=== PATIENT | female | born 1995 | race Caucasian/White ===

== ENCOUNTER 2017-06-03 11:14 | Emergency (ER) | payer BC ==
--- NOTE | 2017-06-03 11:46 | EDPHY ---
H & P Stated Complaint: sore throat Time Seen by Provider: 06/03/17 11:45 HPI/ROS: HPI: This is a 21-year-old female who presents with Chief Complaint: Sore throat Location: Throat Quality: Sore Duration: 1 week Signs and Symptoms: No fever, no cough, no swollen glands, no neck stiffness, no headache, + voice hoarseness, + pain with swallowing, no drooling Timing: Daily, not improved Severity: Moderate Context: Patient presents with one-week history of sore throat accompanied by "I lost my voice." She denies any fever, chills, swollen glands, neck stiffness. She reports that she is drinking fluids but certain foods hurt to swallow. She has not tried any [id number] medications for her symptoms. Denies any cough/upper respiratory symptoms. Modifying Factors: None Comment: ROS: see HPI Constitutional: No fever, no chills, no weight loss Eyes: No blurred vision Respiratory: No shortness of breath, no cough Cardiovascular: No chest pain Gastrointestinal: No nausea, no vomiting, no diarrhea Genitourinary: No dysuria Extremities: No myalgias Neurologic: No weakness, no numbness Skin: No rashes Hematologic: No bruising, no bleeding MEDICAL/SURGICAL/SOCIAL HISTORY: Medical history: Asthma Surgical history: Denies Social history: Student. Nonsmoker. Family history noncontributory. CONSTITUTIONAL: Well-developed well-appearing young adult white female, awake and alert, no obvious distress HEENT: Atraumatic and normocephalic, PERRL, EOMI. Tympanic membranes clear. Oropharynx clear, no tonsillar hypertrophy, mild post pharyngeal erythema, no postpharyngeal edema, uvula midline, no exudate and moist pink mucosa. Airway patent. No lymphadenopathy. No meningismus. Cardiovascular: Normal S1/S2, regular rate, regular rhythm, without murmur rub or gallop. PULMONARY/CHEST: Symmetrical and nontender. Clear to auscultation bilaterally. Good air movement. No accessory muscle usage. ABDOMEN: Soft, nondistended, nontender, no rebound, no guarding, no peritoneal signs, no masses or organomegaly. No CVAT. EXTREMITIES: 2/2 pulses, strength 5/5, no deformities, no clubbing, no cyanosis or edema. NEUROLOGICAL: no focal neuro deficits. GCS 15. SKIN: Warm and dry, no erythema. no rash. Good capillary refill. Source: Patient Exam Limitations: No limitations - Medical/Surgical History Hx Asthma: Yes Hx Chronic Respiratory Disease: No Hx Diabetes: No Hx Cardiac Disease: No Hx Renal Disease: No Hx Cirrhosis: No Hx Alcoholism: No Hx HIV/AIDS: No Hx Splenectomy or Spleen Trauma: No Other PMH: asthma - Social History Smoking Status: Never smoked Constitutional: Initial Vital Signs Temperature (C) 37.0 C 06/03/17 11:22 Heart Rate 95 06/03/17 11:22 Respiratory Rate 16 06/03/17 11:22 Blood Pressure 104/73 06/03/17 11:22 O2 Sat (%) 98 06/03/17 11:22 O2 Delivery Mode Room Air Allergies/Adverse Reactions: No Known Allergies Allergy (Unverified 04/27/14 16:53) Home Medications: Medication Instructions Recorded Albuterol Sulfate 06/03/17 predniSONE [predniSONE TAPER] 10 mg PO DAILY 6 Days ea 06/03/17 Medical Decision Making ED Course/Re-evaluation: Strep test negative Modified Centor criteria low; prophylactic antibiotics not indicated No signs of tonsillar abscess/meningitis/Diego's angina/airway compromise/ dehydration Vital signs reviewed upon arrival and stable. Given 15 mL p. O. Viscous lidocaine, p.o. Decadron 8 mg, ibuprofen 800 mg Passed p. O. Trial prior to discharge without difficulty. Advised continue supportive care This patient was seen under the supervision of my secondary supervising physician. I evaluated care for this patient independently. Differential Diagnosis: Differential diagnosis includes but is not limited to upper respiratory infection, laryngitis, strep pharyngitis. - Data Points Laboratory Results: 06/03/17 06/03/17 Unknown 11:25 Group A Strep Screen NEGATIVE (NEGATIVE) Group A Strep DNA Pending Departure - Departure Disposition: Home, Routine, Self-Care Clinical Impression: Acute laryngitis without obstruction, Viral pharyngitis Condition: Good Instructions: Pharyngitis (ED), Laryngitis (ED) Additional Instructions: Consume a minimum of 8-10 glasses of water or electrolyte fluid replacement drinks that include Gatorade, PowerAde, Pedialyte. Eat a bland diet for the next 48 hours and then slowly advance as tolerated. Use [id number] throat lozenges or Cepacol sore throat spray as needed for sore throat. Take prednisone taper as directed for the next 6 days. Return to the ER immediately if you cannot swallow, have drooling, fevers, neck stiffness, cannot open your jaw, or any other symptoms that concern you. Referrals: [facility],. [Clinic] - 5-7 days, if not improved Prescriptions: predniSONE [predniSONE TAPER] 10 mg PO DAILY 6 Days ea
[2017-06-03] MEDS ORDERED: IBUPROFEN 800 MG TAB PO ONE (11:56)
[2017-06-03] MEDS ORDERED: DEXAMETHASONE 4 MG TAB PO ONE (11:56)
[2017-06-03] MEDS ORDERED: LIDOCAINE 2% VISCOUS 15 ML UDCUP PO ONE (11:56)
[2017-06-03 12:16] VITALS: BP 105/78; PULSE 78; RESP 18; TEMP 98.8; O2SAT 95
== END 2017-06-03 12:15 | disposition home or self-care (01) ==
DX: J02.8 Acute pharyngitis due to other specified organisms (principal); B97.89 Other viral agents as the cause of diseases classified elsewhere; J04.0 Acute laryngitis; J45.909 Unspecified asthma, uncomplicated

== ENCOUNTER 2017-06-07 01:16 | Emergency (ER) | payer BC ==
[2017-06-07 01:20] VITALS: O2SAT 97
[2017-06-07] MEDS ORDERED: ACETAMINOPHEN 500 MG TAB ONE (02:10)
[2017-06-07] MEDS ORDERED: ACETAMINOPHEN 500 MG TAB PO ONE (02:11)
[2017-06-07] MEDS ORDERED: AMOXICILLIN 250 MG PREPACK#4 BTL TAKEHOME ONE (02:39)
[2017-06-07] MEDS ORDERED: TETRACAINE 0.5% 15 ML OPHT.BTL TP ONE (02:40)
--- NOTE | 2017-06-07 02:43 | EDPHY ---
H & P Stated Complaint: left ear pain Time Seen by Provider: 06/07/17 02:31 HPI/ROS: HPI The patient presents with right ear pain which has been present for the last several hours and awoke her from sleep. The pain is severe, achy, constant. She has been sick with laryngitis for the last several days and reports that she has had a sore throat with right-sided swollen glands. She does not have any neck pain or stiffness. She has not had a fever. She has been taking prednisone for the last several days.. REVIEW OF SYSTEMS Constitutional: No fever, no chills. Eyes: No discharge. ENT: No sore throat. Cardiovascular: No chest pain, no palpitations. Respiratory: No cough, no shortness of breath. Gastrointestinal: No abdominal pain, no vomiting. Genitourinary: No hematuria. Musculoskeletal: No back pain. Skin: No rashes. Neurological: No headache. PMHx: History of asthma Soc Hx: Housed PHYSICAL General Appearance: Alert, no distress Eyes: Pupils equal and round no pallor or injection ENT, Mouth: Right TM is bulging with erythematous canal, no tragal tenderness, no mastoid tenderness, tonsils are enlarged bilaterally with right-sided is anterior cervical lymphadenopathy, Mucous membranes moist Respiratory: There are no retractions, lungs are clear to auscultation Cardiovascular: Regular rate and rhythm Gastrointestinal: Abdomen is soft and non-tender, no masses, bowel sounds normal Neurological: A&O, moves all extremities Skin: Warm and dry, no rashes Musculoskeletal: Neck is supple non tender Extremities: symmetrical, full range of motion Psychiatric: Patient is oriented X 3, there is no agitation Source: Patient Exam Limitations: No limitations - Personal History LMP (Females 10-55): 8-14 Days Ago Current Tetanus/Diphtheria Vaccine: Yes Current Tetanus Diphtheria and Acellular Pertussis (TDAP): Yes - Medical/Surgical History Hx Asthma: Yes Hx Chronic Respiratory Disease: No Hx Diabetes: No Hx Cardiac Disease: No Hx Renal Disease: No Hx Cirrhosis: No Hx Alcoholism: No Hx HIV/AIDS: No Hx Splenectomy or Spleen Trauma: No Other PMH: asthma - Social History Smoking Status: Never smoked Constitutional: Initial Vital Signs Temperature (C) 36.6 C 06/07/17 01:19 Heart Rate 94 06/07/17 01:19 Respiratory Rate 18 06/07/17 01:19 Blood Pressure 111/76 06/07/17 01:19 O2 Sat (%) 97 06/07/17 01:19 O2 Delivery Mode Room Air Allergies/Adverse Reactions: No Known Allergies Allergy (Unverified 04/27/14 16:53) Home Medications: Medication Instructions Recorded Albuterol Sulfate 06/03/17 predniSONE [predniSONE TAPER] 10 mg PO DAILY 6 Days ea 06/03/17 Amoxicillin Trihydrate [Amoxil] 500 mg PO Q12H 7 Days cap 06/07/17 Medical Decision Making Differential Diagnosis: This is a 21-year-old female, recently diagnosed with laryngitis, currently on prednisone, who now presents with right-sided ear pain and pressure for the last 1 day. On exam, she appears to have otitis media, TM is intact. She has a prior history of otitis media as a child. I will discharge her on a course of amoxicillin and will give her tetracaine as needed for pain. I have given her follow-up information for ENT. Other differential diagnoses considered include mastoiditis, acute otitis externa. - Data Points Medications Given: Discontinued Medications Acetaminophen (Tylenol) 1,000 mg PO EDNOW ONE Stop: 06/07/17 02:12 Last Admin: 06/07/17 02:11 Dose: 1,000 mg Amoxicillin (Amoxil Chewable 250 Mg Prepack#4) 1 btl TAKEHOME EDNOW ONE PRN Reason: Protocol Stop: 06/07/17 02:40 Last Admin: 06/07/17 03:03 Dose: 1 btl Amoxicillin (Amoxicillin) 500 mg PO EDNOW ONE PRN Reason: Protocol Stop: 06/07/17 02:40 Last Admin: 06/07/17 03:02 Dose: 500 mg Tetracaine HCl (Tetracaine 0.5%) 1 drops TP ONCE ONE Stop: 06/07/17 02:41 Last Admin: 06/07/17 03:10 Dose: 1 drops Departure - Departure Disposition: Home, Routine, Self-Care Clinical Impression: Acute otitis media Qualifiers: Otitis media type: suppurative Laterality: right Recurrence: not specified as recurrent Spontaneous tympanic membrane rupture: without spontaneous rupture Qualified Code(s): H66.001 - Acute suppurative otitis media without spontaneous rupture of ear drum, right ear Condition: Good Instructions: Amoxicillin (By mouth), Tetracaine (On the skin), Ear Infection ( ED), Warm Compress or Soak (ED) Additional Instructions: I would like for you to take ibuprofen 400 mg with acetaminophen 650 mg every 6 hr as needed for pain. You can use the tetracaine in your Ear to help with pain , 1-2 drops every 2-4 hours as needed. If your pain is continuing for the next 1-2 days, I have given you information for Dr. Sutton from [facility] to follow up with. Referrals: Vincenzo Sutton MD [Medical Doctor] - As per Instructions Prescriptions: Amoxicillin Trihydrate [Amoxil] 500 mg PO Q12H 7 Days cap
[2017-06-07 03:08] VITALS: BP 110/72; PULSE 86; RESP 16; TEMP 98.4
== END 2017-06-07 03:13 | disposition home or self-care (01) ==
DX: H66.001 Acute suppurative otitis media without spontaneous rupture of ear drum, right ear (principal); J45.909 Unspecified asthma, uncomplicated

== ENCOUNTER 2018-02-16 12:38 | Emergency (ER) | payer BC, OTHER ==
--- NOTE | 2018-02-16 12:54 | EDPHY ---
H & P Stated Complaint: BRB in stool x 3days Time Seen by Provider: 02/16/18 12:53 HPI/ROS: HPI: This is a 22-year-old female who presents with Chief Complaint: Bright red blood in stool x3 days Location: GI Quality: Rectal bleeding Duration: 3 days Signs and Symptoms: no fever, no nausea, no vomiting, no hematemesis, + blood in stool, no abdominal bloating, no diarrhea, no back pain, no urinary symptoms , no vaginal bleeding/discharge, no indigestion, no chest pain, no shortness of breath, no weight loss Timing: Acute, intermittent episodes Severity: Mild Context: Patient presents with complaints of having a bowel movement and seeing bright red blood on her tissue paper and tbsp of bright red blood in the toilet for the last 3 days when she had bowel movements. She reports decreased appetite but eating and drinking normally. She does drink alcohol and does not regularly take NSAIDs. She denies any abdominal pain, nausea, vomiting, hemorrhoids, diarrhea. She reports that she feels well and has had no weight loss. No family history of ulcerative colitis or Crohn's disease. She does not have any food allergies. Modifying Factors: None Comment: ROS: A comprehensive 10 system review of systems is otherwise negative aside from elements mentioned in the history of present illness. MEDICAL/SURGICAL/SOCIAL HISTORY: Medical history: Asthma. Takes extended control. Surgical history: Denies Social history: Former smoker. Family history noncontributory. CONSTITUTIONAL: Extremely well-appearing young adult white female, awake and alert, no obvious distress HEENT: Atraumatic and normocephalic, PERRL, EOMI. Nares patent; no rhinorrhea; no nasal mucosal edema. Tympanic membranes clear. Oropharynx clear, no exudate and moist pink mucosa. Airway patent. No lymphadenopathy. No meningismus. Cardiovascular: Normal S1/S2, regular rate, regular rhythm, without murmur rub or gallop. PULMONARY/CHEST: Symmetrical and nontender. Clear to auscultation bilaterally. Good air movement. No accessory muscle usage. ABDOMEN: Soft, nondistended, nontender, no rebound, no guarding, no peritoneal signs, no masses or organomegaly. No CVAT. RECTAL: Good sphincter tone, light brown stool in vault, no external hemorrhoids , no fissures, no palpable masses, guaiac positive EXTREMITIES: 2/2 pulses, strength 5/5, no deformities, no clubbing, no cyanosis or edema. NEUROLOGICAL: no focal neuro deficits. GCS 15. SKIN: Warm and dry, no erythema. no rash. Good capillary refill. Source: Patient Exam Limitations: No limitations - Personal History LMP (Females 10-55): Extended Cycle BCP/Inj Current Tetanus Diphtheria and Acellular Pertussis (TDAP): Yes - Medical/Surgical History Hx Asthma: Yes Hx Chronic Respiratory Disease: No Hx Diabetes: No Hx Cardiac Disease: No Hx Renal Disease: No Hx Cirrhosis: No Hx Alcoholism: No Hx HIV/AIDS: No Hx Splenectomy or Spleen Trauma: No Other PMH: asthma - Social History Smoking Status: Former smoker Constitutional: Initial Vital Signs Temperature (C) 36.8 C 02/16/18 12:39 Heart Rate 92 02/16/18 12:39 Respiratory Rate 16 02/16/18 12:39 Blood Pressure 125/80 H 02/16/18 12:39 O2 Sat (%) 97 02/16/18 12:39 O2 Delivery Mode Room Air Allergies/Adverse Reactions: No Known Allergies Allergy (Verified 02/16/18 12:38) Home Medications: Medication Instructions Recorded Amphet Asp and D/Amphet [Adderall 10 mg PO 02/16/18 10 MG (*)] Fluticasone/Salmeter 100/50Mcg 1 puffs IH BID 02/16/18 [Advair 100/50 (*)] Medical Decision Making ED Course/Re-evaluation: Vital signs reviewed and stable upon arrival. No systemic signs. IV access and laboratory studies ordered Guaiac stool is positive Patient's abdomen is soft and nontender and doubt surgical process and need for imaging. 1356: Labs reviewed. No signs of leukocytosis/anemia/platelet dysfunction/RACIEL/ elevated LFTs/electrolyte imbalance/pancreatitis/ Patient will follow up with PCP and Gastroenterology. This patient was seen under the supervision of my secondary supervising physician. I evaluated care for this patient independently. Discussed this patient with Dr. Sanchez who did not see the patient. Differential Diagnosis: Differential diagnosis includes but is not limited to inflammatory bowel disorder, Ischemic bowel disease, gastroenteritis, rectal irritation, gastroenteritis, hemorrhoids, diverticulitis. - Data Points Laboratory Results: Laboratory Results 02/16/18 11:31 02/16/18 11:31 02/16/18 02/16/18 02/16/18 13:05 11:31 11:31 WBC RBC Hgb Hct MCV MCH MCHC RDW Plt Count MPV Neut % (Auto) Lymph % (Auto) [place] % (Auto) Eos % (Auto) Baso % (Auto) Nucleat RBC Rel Count Absolute Neuts (auto) Absolute Lymphs (auto) Absolute Monos (auto) Absolute Eos (auto) Absolute Basos (auto) Absolute Nucleated RBC Immature Gran % Immature Gran # PT INR APTT Sodium 140 mEq/L mEq/L (135-145) Potassium 4.2 mEq/L mEq/L (3.5-5.2) Chloride 107 mEq/L mEq/L (97-110) Carbon Dioxide 25 mEq/l mEq/l (22-31) Anion Gap 8 mEq/L mEq/L (6-14) BUN 10 mg/dL mg/dL (7-23) Creatinine 0.7 mg/dL mg/dL (0.6-1.0) Estimated GFR > 60 Glucose 85 mg/dL mg/dL (70-100) Calcium 9.3 mg/dL mg/dL (8.5-10.4) Total Bilirubin 0.7 mg/dL mg/dL (0.1-1.4) Conjugated Bilirubin 0.2 mg/dL mg/dL (0.0-0.5) Unconjugated Bilirubin 0.5 mg/dL mg/dL (0.0-1.1) AST 18 IU/L IU/L (14-46) ALT 19 IU/L IU/L (9-52) Alkaline Phosphatase 43 IU/L IU/L (38-126) Total Protein 7.2 g/dL g/dL (6.3-8.2) Albumin 4.3 g/dL g/dL (3.5-5.0) Lipase 53 IU/L IU/L (23-300) Beta HCG, Qual NEGATIVE Stool Occult Bld Scrn POSITIVE H (NEGATIVE) 02/16/18 02/16/18 11:31 11:31 WBC 5.35 10^3/uL 10^3/uL (3.80-9.50) RBC 4.42 10^6/uL 10^6/uL (4.18-5.33) Hgb 14.0 g/dL g/dL (12.6-16.3) Hct 41.9 % % (38.0-47.0) MCV 94.8 fL fL (81.5-99.8) MCH 31.7 pg pg (27.9-34.1) MCHC 33.4 g/dL g/dL (32.4-36.7) RDW 11.2 % L % (11.5-15.2) Plt Count 284 10^3/uL 10^3/uL (150-400) MPV 10.1 fL fL (8.7-11.7) Neut % (Auto) 58.4 % % (39.3-74.2) Lymph % (Auto) 26.0 % % (15.0-45.0) [place] % (Auto) 5.8 % % (4.5-13.0) Eos % (Auto) 9.0 % H % (0.6-7.6) Baso % (Auto) 0.6 % % (0.3-1.7) Nucleat RBC Rel Count 0.0 % % (0.0-0.2) Absolute Neuts (auto) 3.13 10^3/uL 10^3/uL (1.70-6.50) Absolute Lymphs (auto) 1.39 10^3/uL 10^3/uL (1.00-3.00) Absolute Monos (auto) 0.31 10^3/uL 10^3/uL (0.30-0.80) Absolute Eos (auto) 0.48 10^3/uL H 10^3/uL (0.03-0.40) Absolute Basos (auto) 0.03 10^3/uL 10^3/uL (0.02-0.10) Absolute Nucleated RBC 0.00 10^3/uL 10^3/uL (0-0.01) Immature Gran % 0.2 % % (0.0-1.1) Immature Gran # 0.01 10^3/uL 10^3/uL (0.00-0.10) PT 14.5 SEC SEC (12.0-15.0) INR 1.11 (0.83-1.16) APTT 27.0 SEC SEC (23.0-38.0) Sodium Potassium Chloride Carbon Dioxide Anion Gap BUN Creatinine Estimated GFR Glucose Calcium Total Bilirubin Conjugated Bilirubin Unconjugated Bilirubin AST ALT Alkaline Phosphatase Total Protein Albumin Lipase Beta HCG, Qual Stool Occult Bld Scrn Departure - Departure Disposition: Home, Routine, Self-Care Clinical Impression: Rectal bleeding, Guaiac positive stools Condition: Good Instructions: Rectal Bleeding (ED), Colonoscopy (DC) Additional Instructions: Do Not drink alcohol or caffeinated beverages. Do Not take NSAIDs that include ibuprofen, Motrin, Advil. Consume a minimum of 8-10 glasses of water or electrolyte fluid replacement drinks that include Gatorade, Powerade, Pedialyte. Eat a bland diet for the next 48 hours and then slowly advance as tolerated. Do not strain while you are having bowel movements. Follow-up with primary care provider/gastroenterology next week. You may need to have a colonoscopy performed. Referrals: Mirian Graham MD [Primary Care Provider] - As per Instructions Emil Drummond MD [Medical Doctor] - As per Instructions
[2018-02-16 13:36] LABS: PLATELET COUNT 284 10^3/uL (150-400)
[2018-02-16 13:38] LABS: INR 1.11 (0.83-1.16); PROTIME(PATIENT) 14.5 SEC (12.0-15.0)
[2018-02-16 14:08] VITALS: BP 112/75
== END 2018-02-16 14:08 | disposition home or self-care (01) ==
DX: K62.5 Hemorrhage of anus and rectum (principal); R19.5 Other fecal abnormalities